=== PATIENT | female | born 1940 | race Caucasian/White ===

== ENCOUNTER → 2024-05-31 | Day surgery (SDC) | payer MEDICARE | LOC: CSHRAD 16:34 | PROVIDERS: ATTEND Family Medicine | DX: M25.551 Pain in right hip (principal) ==

== ENCOUNTER 2024-10-13 08:34 | Outpatient (CLI) | payer MEDICARE | END 2024-10-13 08:35 | disposition home or self-care (01) | LOC: CSHMRI 08:34 | PROVIDERS: ATTEND Student in an Organized Health Care Education/Training Program | DX: R47.01 Aphasia (principal); G93.89 Other specified disorders of brain; R90.82 White matter disease, unspecified | CPT/HCPCS: 70553; 76376 ==